=== PATIENT | female | born 1975 | race Caucasian/White ===

== ENCOUNTER 2016-11-12 20:23 | Emergency (ER) | payer MEDICARE, OTHER ==
[2016-11-12 20:31] VITALS: BP 118/75
[2016-11-12] MEDS ORDERED: KETOROLAC TROMETHAMINE 60 MG/2 ML VIAL IM ONE ×2 (20:42→20:45)
[2016-11-12] MEDS ORDERED: PROMETHAZINE HCL 50 MG/ML AMPUL IM ONE ×2 (20:42→20:45)
--- NOTE | 2016-11-12 20:51 | ERNOTE ---
Headache ER HPI - Narrative Date of Service: 11/12/16 - General Presenting Symptoms: headache Source: patient, family - Immun/Allergies/Home Medications Immunizations: IMMUNIZATION HX Immunizations Up to Date Yes History of Influenza Vaccine No Allergies/Adverse Reactions: Allergies No Known Allergies Allergy (Verified 11/12/16 20:31) Home Medications: HOME MEDICATIONS ALPRAZolam [Xanax] 0.5 mg PO TID PRN 06/17/16 [Last Taken Unknown] Bupropion HCl [Wellbutrin Sr] 100 mg PO DAILY 06/17/16 [Last Taken Unknown] Colchicine 0.6 mg PO TID #60 tablet 06/17/16 [Last Taken Unknown] Divalproex Sodium [Depakote ER] 500 mg PO DAILY 06/17/16 [Last Taken Unknown] Fluoxetine HCl [Prozac] 40 mg PO DAILY 06/17/16 [Last Taken Unknown] Furosemide [Lasix] 40 mg PO DAILY 06/17/16 [Last Taken Unknown] Levothyroxine Sodium [Tirosint] 75 mcg PO DAILY 06/17/16 [Last Taken Unknown] Loratadine [Claritin] 10 mg PO DAILY 06/17/16 [Last Taken Unknown] Montelukast Sodium [Singulair] 10 mg PO DAILY 06/17/16 [Last Taken Unknown] Naproxen Sodium [Anaprox Ds] 550 mg PO Q12H #60 tab 06/17/16 [Last Taken Unknown ] Topiramate [Topamax] 100 mg PO BID 06/17/16 [Last Taken Unknown] - History of Present Illness Narrative: 40 year old female states she's had a headache for the past 3 days and has not gotten any better with her home meds. She has a history of migraines but this is most probably a muscle tension headache which starts behind the head and comes over and settles behind the eyes. It is not associated with an aura or visual disturbance. She does have some nausea but no vomiting. She has been under a great deal of stress recently evicted from her trailer and given 30 days to move and she does not have the money or wear with all to make the move Activity at onset: other - stess Timing of Headache: gradual Quality: Present: pressure, throbbing Severity Maximum: Present: severe Severity-Currently: Present: severe Headache frequency: Present: frequent headaches Modifying Factors - (Improves): Reports: medication Modifying Factors - (Worsens): Reports: other - stress Associated Symptoms: Reports: nausea. Denies: vomiting Exacerbated by:: Reports: noise, movement Review of Systems - Review of Systems Constitutional: Present: See HPI EYE: Present: no symptoms reported ENT: Present: no symptoms reported Respiratory: Present: no symptoms reported Cardiology: Present: no symptoms reported Gastrointestinal/Abdominal: Present: no symptoms reported Genitourinary: Present: no symptoms reported Musculoskeletal: Present: no symptoms reported Skin: Present: no symptoms reported Neurological: Present: See HPI, anxiety Endocrine: Present: no symptoms reported Hematologic/Lymphatic: Present: no symptoms reported Psych: Present: no symptoms reported - Patient's Past Medical History Patient History - Medical: Anxiety, Depression, Hypothyroidism, Migraines Patient History - Cancer: No Hx of Cancer Patient History - Surgical Procedures: Cholecystectomy, , Hysterectomy , T & A - Social History Living Situations: home Smoking Status: Never smoker Alcohol Use: none Drug Use: none Physical Exam - Physical Exam General Appearance: Present: moderate distress, obese Eye Exam: Normal inspection: bilateral, PERRL: bilateral Ears, Nose, Throat: Present: normal ENT inspection, hearing grossly normal, normal pharynx Neck: Present: normal inspection, nontender Respiratory: Present: no respiratory distress, normal breath sounds, no accessory muscle use, chest nontender, lungs clear Cardiovascular/Chest: Present: regular rate, rhythm, no murmur, normal peripheral pulses Gastrointestinal/Abdominal: Present: normal bowel sounds, nontender, nondistended, soft, no organomegaly Rectal Exam: Present: deferred Back Exam: Present: normal inspection, normal range of motion, no CVA tenderness , no vertebral tenderness Extremity Exam: Present: normal inspection, non-tender, no edema, normal range of motion Neurological Exam: Present: alert, oriented, normal mood/affect, no motor/ sensory deficits Skin Exam: Present: normal color, warm/dry Lymphatic Exam: Present: no adenopathy ED Progress - Vital Signs Vital Signs: Vital Signs 11/12/16 20:26 Temperature 36.4 C L Pulse Rate 66 Respiratory 20 Rate Blood Pressure 118/75 O2 Sat by Pulse 98 Oximetry - Progress/Reassessment Chief Complaint: Headache Plan - Plan Plan: Try to break the cycle of the headache with combination of 60 mg Toradol IM and Phenergan 50 mg IM Departure Clinical Impression: Tension headache - Departure Disposition: Home self-care Condition: Fair Instructions: Tension Headache, [id number] Additional Instructions: continue current medication and follow up with Dr. Figueroa as needed. Referrals: Zen Jacob MD [Primary Care Provider] -
== END 2016-11-12 20:57 | disposition home or self-care (01) ==
LOC: ER 20:23
DX: G44.209 Tension-type headache, unspecified, not intractable (principal)